=== PATIENT | female | born 1955 | race Caucasian/White ===

== ENCOUNTER → 2017-04-12 | Outpatient (CLI) | payer BC, OTHER | LOC: ULTRA 10:20 | DX: I10 Essential (primary) hypertension (principal); G45.9 Transient cerebral ischemic attack, unspecified ==

== ENCOUNTER → 2019-12-20 | Outpatient (CLI) | payer OTHER ==
[~2019-12-20] MED LIST: COLACE100 MG PO; CRESTOR20 MG PO; DAPSONE25 MG PO; EVOXAC30 MG PO; FARXIGA PO; FLEXERIL PO; JANUVIA100 MG PO; LISINOPRIL-HCTZ PO; NORVASC10 MG PO; OMEPRAZOLE PO; PERCOCET PO; SENNA8.6 MG PO; ZOLOFT50 MG PO
== END ==
LOC: NUC 10:02
DX: M85.88 Other specified disorders of bone density and structure, other site (principal); N95.1 Menopausal and female climacteric states; E11.9 Type 2 diabetes mellitus without complications

== ENCOUNTER → 2020-10-02 | Outpatient (CLI) | payer OTHER | LOC: RAD 13:55 | PROVIDERS: ATTEND Nurse Practitioner | DX: M54.40 Lumbago with sciatica, unspecified side (principal); M41.86 Other forms of scoliosis, lumbar region ==

== ENCOUNTER → 2020-11-09 | Outpatient (CLI) | payer OTHER | LOC: MRI 10:08 | PROVIDERS: ATTEND Nurse Practitioner | DX: M51.36 Other intervertebral disc degeneration, lumbar region (principal); M54.40 Lumbago with sciatica, unspecified side; M48.04 Spinal stenosis, thoracic region; M48.061 Spinal stenosis, lumbar region without neurogenic claudication; M25.78 Osteophyte, vertebrae ==

== ENCOUNTER 2020-11-23 10:28 | Emergency (ER) | payer OTHER ==
[~2020-11-23] VITALS: Ht 165.1 cm; Wt 63.5 kg
[2020-11-23 13:26] VITALS: BP 99/63
== END 2020-11-23 13:26 | disposition home or self-care (01) ==
LOC: ER 10:28
DX: S02.31XA Fracture of orbital floor, right side, initial encounter for closed fracture (principal); E11.9 Type 2 diabetes mellitus without complications; E78.5 Hyperlipidemia, unspecified; I10 Essential (primary) hypertension; E11.40 Type 2 diabetes mellitus with diabetic neuropathy, unspecified; Z91.030 Bee allergy status; Z79.899 Other long term (current) drug therapy; Z90.710 Acquired absence of both cervix and uterus; Z90.49 Acquired absence of other specified parts of digestive tract; W18.30XA Fall on same level, unspecified, initial encounter; Y93.89 Activity, other specified; Y92.89 Other specified places as the place of occurrence of the external cause; Y99.9 Unspecified external cause status

== ENCOUNTER → 2020-11-23 | Outpatient (CLI) | payer OTHER | LOC: RAD 16:45 | PROVIDERS: ATTEND Nurse Practitioner | DX: S20.20XA Contusion of thorax, unspecified, initial encounter (principal); M41.86 Other forms of scoliosis, lumbar region; X58.XXXA Exposure to other specified factors, initial encounter; Y93.89 Activity, other specified; Y92.89 Other specified places as the place of occurrence of the external cause; Y99.8 Other external cause status ==

== ENCOUNTER → 2021-01-15 | Outpatient (CLI) | payer OTHER | LOC: LAB 11:31 | PROVIDERS: ATTEND Anesthesiology | DX: Z01.812 Encounter for preprocedural laboratory examination (principal); Z20.822 Contact with and (suspected) exposure to COVID-19 ==

== ENCOUNTER 2021-07-12 12:07 | Emergency (ER) | payer OTHER ==
[~2021-07-12] VITALS: Ht 165.1 cm; Wt 66.2 kg
[2021-07-12 12:30] LABS: ABSOLUTE NEUTROPHILS 3.7 thou/uL (1.4-8.2); BASOPHILS 1.4 % (0.0-2.0); EOSINOPHILS 2.9 % (0.0-3.0); HEMOGLOBIN 13.1 gm/dL (12.0-15.0); LYMPHOCYTES 25.7 % (24.0-44.0); MCH 31.5 pg (26.0-34.0); MCHC 34.6 g/dL (28.0-37.0); MCV 91.1 fL (80.0-100.0); MONOCYTES 8.5 % (1.0-8.0); PLATELET COUNT 295 thou/uL (150-400); POLYS 61.5 % (36.0-66.0); RBC 4.17 mil/uL (4.20-5.00); RDW 13.6 % (10.5-14.5)
[2021-07-12 12:49] LABS: CALCIUM 9.1 mg/dL (8.5-10.1); POTASSIUM 4.1 mmol/L (3.5-5.1)
[2021-07-12 12:59] LABS: ALBUMIN 4.5 g/dL (3.4-5.0); TOTAL BILIRUBIN 0.4 mg/dL (0.2-1.0); TOTAL PROTEIN 7.8 g/dL (6.4-8.2)
[2021-07-12] MEDS ORDERED: MEDROLDOSEPACK PO (13:51)
[2021-07-12] MEDS ORDERED: MOBIC7.5 MG PO (13:51)
[2021-07-12 14:11] VITALS: BP 135/62
--- NOTE | 2021-07-12 16:27 | EKG ---
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
== END 2021-07-12 14:17 | disposition home or self-care (01) ==
LOC: ER 12:07
PROVIDERS: Emergency Medicine
DX: M94.0 Chondrocostal junction syndrome [Tietze] (principal); E11.40 Type 2 diabetes mellitus with diabetic neuropathy, unspecified; E78.5 Hyperlipidemia, unspecified; I10 Essential (primary) hypertension; Z90.710 Acquired absence of both cervix and uterus; Z90.49 Acquired absence of other specified parts of digestive tract; Z90.89 Acquired absence of other organs; Z79.899 Other long term (current) drug therapy; Z91.030 Bee allergy status

== ENCOUNTER → 2021-08-20 | Outpatient (CLI) | payer OTHER ==
[~2021-08-20] MED LIST changes: +MEDROLDOSEPACK PO; +MOBIC7.5 MG PO
== END ==
LOC: RAD 12:11
PROVIDERS: ATTEND Nurse Practitioner
DX: R93.89 Abnormal findings on diagnostic imaging of other specified body structures (principal); M19.012 Primary osteoarthritis, left shoulder